=== PATIENT | female | born 1955 | race Caucasian/White ===

== ENCOUNTER 2016-06-14 13:31 | Emergency (ER) | payer OTHER | END 2016-06-14 15:10 | disposition home or self-care (01) | LOC: ER1 13:31 | DX: M25.512 Pain in left shoulder (principal); G89.29 Other chronic pain | CPT/HCPCS: 96372; 99283 ==

== ENCOUNTER 2016-07-11 02:13 | Emergency (ER) | payer OTHER | END 2016-07-11 06:53 | disposition home or self-care (01) | LOC: ER1 02:13 | DX: S46.002A Unspecified injury of muscle(s) and tendon(s) of the rotator cuff of left shoulder, initial encounter (principal); G89.29 Other chronic pain; I10 Essential (primary) hypertension; J45.909 Unspecified asthma, uncomplicated; Z86.711 Personal history of pulmonary embolism; X58.XXXA Exposure to other specified factors, initial encounter; Z88.5 Allergy status to narcotic agent; Z88.6 Allergy status to analgesic agent; Z79.891 Long term (current) use of opiate analgesic; Z79.899 Other long term (current) drug therapy | CPT/HCPCS: 96372; 99283 ==

== ENCOUNTER 2016-08-18 12:32 | Emergency (ER) | payer OTHER | END 2016-08-18 15:03 | disposition home or self-care (01) | LOC: ER1 12:32 | DX: S13.9XXA Sprain of joints and ligaments of unspecified parts of neck, initial encounter (principal); I10 Essential (primary) hypertension; J44.9 Chronic obstructive pulmonary disease, unspecified; R51 Headache; Z88.6 Allergy status to analgesic agent; Z88.5 Allergy status to narcotic agent; Z91.040 Latex allergy status; X58.XXXA Exposure to other specified factors, initial encounter | CPT/HCPCS: 96374; 96375; 99283; J2405 ==

== ENCOUNTER 2020-03-17 14:26 | Emergency (ER) | payer MEDICARE ==
[~2020-03-17 14:26] MED LIST: ADVAIR 250-501 EACH INH; BACTROBAN OINT22 GM EXT; DILTIAZEM 24HR180 MG PO; ELIQUIS 5 MG TAB5 MG PO; FERROUS SULFAT325 MG PO; HYDROCHLOROTHIA25 MG PO; METOPROLOL SUCC50 MG PO; NEURONTIN 400400 MG PO; NEURONTIN600 MG PO; PERCOCET 10-321 EACH PO; PERCOCET 7.5-325 PO; SYNTHROID100 MCG PO; THEO-DUR 300 M300 MG PO; TYLENOL 8 HOUR650 MG PO
== END 2020-03-17 15:49 | disposition home or self-care (01) ==
LOC: ER1 14:26
DX: M25.512 Pain in left shoulder (principal); I10 Essential (primary) hypertension; H91.3 Deaf nonspeaking, not elsewhere classified; Z86.711 Personal history of pulmonary embolism; Z88.6 Allergy status to analgesic agent; Z88.5 Allergy status to narcotic agent
CPT/HCPCS: 99283

== ENCOUNTER 2020-03-26 12:01 | Emergency (ER) | payer MEDICARE | END 2020-03-26 13:30 | disposition home or self-care (01) | LOC: ER1 12:01 | DX: M79.605 Pain in left leg (principal); M79.602 Pain in left arm; G89.29 Other chronic pain; G35 Multiple sclerosis; J45.909 Unspecified asthma, uncomplicated; Z88.6 Allergy status to analgesic agent; Z88.5 Allergy status to narcotic agent; Z53.20 Procedure and treatment not carried out because of patient's decision for unspecified reasons | CPT/HCPCS: 99283 ==